=== PATIENT | male | born 1970 | race Caucasian/White ===

== ENCOUNTER 2017-03-05 04:44 | Emergency (ER) | payer OTHER ==
[~2017-03-05 04:44] MED LIST: BIAXIN FILMTAB250 MG PO; CYCLOBENZAPRINE10 MG PO; FLEXERIL10 MG PO; PERCOCET 325 MG1 TA2 PO; VICODIN 300 MG-1 TAB PO
--- NOTE | 2017-03-05 05:03 | ED INFLUENZA/URI COMPLAINT ---
History of Present Illness General Chief Complaint: General Adult Stated Complaint: "RT SIDE JAW PAIN RADIATES TO RT EYE,SINUS" Source: patient Exam Limitations: no limitations Vital Signs & Intake/Output Vital Signs & Intake/Output Vital Signs Date Time Temp Pulse Resp B/P B/P Pulse O2 O2 Flow FiO2 Mean Ox Delivery Rate 03/05 0537 61 20 172/98 97 Room Air 03/05 0457 97.4 68 20 148/89 97 Room Air Allergies Coded Allergies: MDX - Morphine (MORPHINE) (Intermediate, RASH, HIVES, PAIN 08/26/14) MDX - Penicillin (UNKNOWN RX 04/18/14) Reconcile Medications Clarithromycin (Biaxin Filmtab) 250 MG TAB 1 TAB PO BID PNA CYCLOBENZAPRINE HCL (Cyclobenzaprine HCl) 10 MG TABLET 1 TAB PO QPM PRN PAIN (Reported) OXYCODONE HCL/ACETAMINOPHEN (Percocet 5-325 MG Tablet) 325 MG/5 MG TAB 1-2 TAB PO Q4-6 PRN PRN PAIN Triage Note: PT TO ED C/O PAIN IN RT LOWER JAW THAT GOES UP TO SINUSES UNDER EYE AND BEHIND EYE, ALSO GOES DOWN TO UNDER THE JAW IN LYMPH NODE AREA. PAIN COMES AND GOES. DENIES AT THIS TIME. TOOK 3 ALEVE APPROX 90 MINS AGO. STATES DOES HAVE A TEMPERATURE SENSATIVE TOOTH UPPER JAW RT SIDE. PMH OF CA AND CSARDIAC STENT. DENIES CHEST PAIN, DENIES ANY SOB Triage Nurses Notes Reviewed? yes Onset: Abrupt Duration: hour(s): Timing: single episode today Severity: moderate Prior Episodes/Possible Cause: "I had jaw pain when I had my heart attack." Modifying Factors: Improves With: rest. Associated Symptoms: "Pain in my jaw that goes up behind my eye." HPI: 46 yo gentleman h/o CA, s/p cardiac stent 4 years ago, presents with 4 episodes of right neck and jaw pain, intermittent, beginning at 1:30am. He notes that each episode lasts 10-15 minutes, and is not associated with chest pain, shortness of breath, diaphoresis. He notes that, "It doesn't seem to be painful when I press my jaw.... it's really weird." He notes that when he does get the pain, "it's really bad, 05/05." (REBECCA TAFOYA,JAQUELIN Tejeda) Past History Travel History Traveled to [place] past 21 day No Medical History Any Pertinent Medical History? 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 No (JAQUELIN FERNANDEZ MD) Review of Systems Review of Systems Constitutional: Reports: no symptoms. EENTM: Reports: no symptoms. Respiratory: Reports: no symptoms. Cardiovascular: Reports: no symptoms. GI: Reports: no symptoms. Genitourinary: Reports: no symptoms. Musculoskeletal: Reports: no symptoms. Skin: Reports: no symptoms. Neurological/Psychological: Reports: no symptoms. Hematologic/Endocrine: Reports: no symptoms. Immunologic/Allergic: Reports: no symptoms. All Other Systems: Reviewed and Negative (JAQUELIN FERNANDEZ MD) Physical Exam Physical Exam General Appearance: well developed/nourished, no apparent distress Head: atraumatic, normal appearance Eyes: Bilateral: normal appearance, PERRL, EOMI. Ears, Nose, Throat: normal ENT inspection, moist mucous membrane, hearing grossly normal, no pain to palpation in jaw/sinuses Neck: normal inspection, supple, full range of motion Respiratory: normal breath sounds, chest non-tender, no respiratory distress, quiet respiration Cardiovascular: regular rate/rhythm, normal peripheral pulses Gastrointestinal: normal bowel sounds, soft, non-tender, no organomegaly Back: normal inspection, normal range of motion Extremities: normal inspection, normal capillary refill, normal range of motion Neurologic/Psych: no motor/sensory deficits, awake, alert, oriented x 3 Skin: intact, normal color, warm/dry Core Measures Severe Sepsis Present: No Septic Shock Present: No (JAQUELIN FERNANDEZ MD) Progress Differential Diagnosis: sinusitis, chest wall pain, unstable angina Plan of Care: Orders Procedure Date/time Status TROPONIN LEVEL 03/05 0830 Active EKG 03/05 0830 Active CTA CHEST-PULMONARY EMBOLISM 03/05 0647 Active EKG 03/05 0556 Active Add-on Test (ER Only) 03/05 544 Active EKG 03/05 531 Active XRY-PORTABLE CHEST XRAY 03/05 518 Active TROPONIN LEVEL 03/05 518 Complete PARTIAL THROMBOPLASTIN TIME 03/05 518 Complete PROTHROMBIN TIME 03/05 518 Complete D-DIMER 03/05 518 Complete COMPREHENSIVE METABOLIC PANEL 03/05 518 Complete CBC WITHOUT DIFFERENTIAL 03/05 518 Complete EKG 03/05 518 Active Laboratory Tests 03/05/17 0523: Anion Gap 10, Estimated GFR > 60, BUN/Creatinine Ratio 23.0, Glucose 121 H, Calcium 9.9, Total Bilirubin 0.4, AST 70 H, ALT 62, Alkaline Phosphatase 69, Troponin I < 0.01, Total Protein 6.7, Albumin 4.1, Globulin 2.6, Albumin/ Globulin Ratio 1.6, PT 9.9, INR 0.94, APTT 30, D-Dimer High Sensitivty 418 H, CBC w Diff NO MAN DIFF REQ, RBC 4.45 L, MCV 90.2, MCH 29.8, RDW 13.3, MPV 8.6, Gran % 78.4 H, Lymphocytes % 15.0 L, Monocytes % 4.6, Eosinophils % 1.6, Basophils % 0.4, Absolute Granulocytes 11.6 H, Absolute Lymphocytes 2.2, Absolute Monocytes 0.7 H, Absolute Eosinophils 0.2, Absolute Basophils 0.1, PUBS MCHC 33.0 Diagnostic Imaging: Viewed by Me: Radiology Read, CT Scan. Discussed w/RAD: Radiology Read, CT Scan. Initial ED EKG: left ant mumtaz block... unchanged x 2 Repeat EKG: unchanged Hand-Off Endorsed To: LUIS TAFOYA,ELYSIA Cardoso Endorsed Time: 0700 Pending: CT, other (blood work) Comments: 3 ekg's are all benign. (REBECCA TAFOYA,JAQUELIN Tejeda) Comments: 03/05/17, 0720: Patient is insistent upon leaving. Patient states that he knows that we did not draw a second set of enzymes here and they're not due until 3: 30. Patient states he has not had the pain and a little while and has too many things to do. Patient verbally understands the risks of leaving AGAINST MEDICAL ADVICE. Patient advised that with just one set of enzymes are cannot tell that he did not have any type of heart related issue. Patient advised that he has a history of heart attacks and has a stent in already. Patient advised that if this is his heart that is causing this pain then he can have a major heart attack and even from it. Patient verbally understands these risks. Patient is alert and oriented 3. Patient is competent to make this decision. (LUIS TAFOYA,ELYSIA Cardoso) Departure Departure Condition: Stable Clinical Impression Primary Impression: Jaw pain Referrals: PATIENT HAS NO PRIMARY CARE DR (PCP/Family) Departure Forms: Customer Survey General Discharge Information (REBECCA TAFOYA,JAQUELIN Tejeda) Departure Disposition: LEFT AGAINST MEDICAL ADVICE Additional Instructions: PLEASE RETURN SO WE CAN FINISH THE EVALUATION (LUIS TAFOYA,ELYSIA Cardoso)
[2017-03-05 05:59] LABS: ABSOLUTE BASOPHIL COUNT 0.1 /CUMM (0.0-0.2); ABSOLUTE EOSINOPHIL COUNT 0.2 /CUMM (0.0-0.7); ABSOLUTE GRANULOCYTE CT 11.6 /CUMM (1.4-6.5); ABSOLUTE LYMPH COUNT 2.2 /CUMM (1.2-3.4); ABSOLUTE MONOCYTE COUNT 0.7 /CUMM (0.10-0.60); BASOPHIL % 0.4 % (0.0-2.0); EOSINOPHIL % 1.6 % (0-5); GRANULOCYTE % 78.4 % (42.2-75.2); HEMATOCRIT 40.1 % (42-52); MEAN CORPUSCULAR HGB 29.8 PG (27.0-31.0); MEAN CORPUSCULAR VOLUME 90.2 FL (80.0-94.0); MEAN PLATELET VOLUME 8.6 FL (7.4-10.4); PLATELET COUNT 300 /CUMM (130-400); RBC DISTRIBUTION WIDTH 13.3 % (11.5-14.5); RED BLOOD CELL CT 4.45 /CUMM (4.70-6.10); WHITE BLOOD CELL COUNT 14.8 /CUMM (4.8-10.8)
[2017-03-05 06:07] LABS: PT 9.9 SEC (9.4-12.5); PTT 30 SEC (25-37)
[2017-03-05 07:31] VITALS: BP 142/74
== END 2017-03-05 07:32 | disposition left against medical advice (07) ==
LOC: ERH 04:44
PROVIDERS: Pediatrics
DX: R68.84 Jaw pain (principal); M54.2 Cervicalgia
CPT/HCPCS: 93005; 93010; 96374; 96375; J0131; J1885; J3490

== ENCOUNTER 2018-01-01 15:17 | Emergency (ER) | payer OTHER ==
[~2018-01-01] VITALS: Ht 172.7 cm; Wt 79.4 kg
[~2018-01-01 15:17] MED LIST changes: +AZITHROMYCIN250 M1 PO; +NASONEX17 GM NASB
[2018-01-01 15:27] VITALS: BP 147/76
--- NOTE | 2018-01-01 15:50 | ED EAR COMPLAINT ---
History of Present Illness General Chief Complaint: Ear Complaints Stated Complaint: L EAR PAIN Source: patient, old records Exam Limitations: no limitations Vital Signs & Intake/Output Vital Signs & Intake/Output Vital Signs Date Time Temp Pulse Resp B/P B/P Pulse O2 O2 Flow FiO2 Mean Ox Delivery Rate 01/01 1527 96.8 81 18 147/76 98 Room Air Allergies Coded Allergies: Penicillins (Intermediate, RASH 07/01/17) morphine (Intermediate, ARM FELT HOT 07/01/17) Reconcile Medications Azithromycin 250 MG TABLET 1 DP PO AD sinusitis 2 the first day followed by 1 for days 2-5 Azithromycin 250 MG TABLET 1 DP PO AD sinusitis 2 the first day followed by 1 for days 2-5 Fluticasone Propionate (Flonase Allergy Relief) 50 MCG/ACTUATION SPRAY.SUSP 2 SPRAY NINA DAILY RHINITIS Mometasone Furoate (Nasonex) 50 MCG SPRAY.PUMP 2 SPRAY NASB DAILY sinusitis Triage Note: 47M LEFT EAR ACHE, LEFT SIDED MAXILLARY SINUS PRESSURE AND TRIGEMINAL NERVE AREA. NO PARALYSIS OR DROOP NOTED. DENIES NOTICING CHANGE IN HEARING. ALSO REPORTS LEFT SIDED LYMPHNODE TENDERNESS. AFEBRILE. DENIES FEVERS/CHILLS. REPORTS SYMPTOMS X1 WEEK AND WORSENING Triage Nurses Notes Reviewed? yes Onset: Abrupt Duration: week(s): (1), constant Timing: recent history Injury Environment: home Severity: moderate Severity Numbers: 5 No Modifying Factors: none Associated Symptoms: denies HPI: 47-year-old male with history of coronary artery disease presents the ER for evaluation complaining of a one-week history of left facial pain and pressure radiating to his ear and into his left upper gum. He reports his roommate has been sick with similar symptoms. He has not taken anything for his symptoms. No cough fever chills sore throat abdominal pain nausea vomiting diarrhea. No chest pain. He denies any decreased hearing out of the ear no right ear symptoms. (Alfonso GARCIA,Apolinar) Past History Travel History Traveled to [place] past 21 day No Medical History Any Pertinent Medical History? 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 No (Apolinar Ramírez) Review of Systems Review of Systems Constitutional: Reports: see HPI. Comments Review of systems: See HPI, All other systems negative. Constitutional, no chills no fever, HEENT: no sore throat congestion, ear pain Cardiovascular: No chest pain , no palpitation Skin: no rashes, no change in skin Respiratory: No dyspnea no cough GI: No nausea no vomiting, no diarrhea Muscle skeletal: No joint pain, no back pain Neurologic: , no headache Heme/endocrine: No bruising Immunology: No lymphadenopathy (Apolinar Ramírez) Physical Exam Physical Exam General Appearance: well developed/nourished, no apparent distress, alert Ears: Bilateral: canal normal. Comments: Well-developed well-nourished patient in no apparent distress. Head/Face: Atraumatic, LEFT maxillary sinus tenderness, no facial swelling Eyes: PERRL, EOMI, no conjunctival injection.No nystagmus Ear:External auditory canal and Tympanic membranes clear, no erythema, no FB. Nose: atraumatic.Normal inspection: Throat: Moist mucous membranes.Pharynx normal. No pharyngeal erythema/exudate seen. No stridor/drooling or assymetry. No swelling or edema. No gingival swelling Neck: Supple, no lymphadenopathy, FROM Back: FROM Cardiovascular: Regular rate and rhythms no murmur Respiratory: No respiratory distress. Patient speaking in full complete sentences. Breath sounds clear to auscultation bilaterally: NO W/R/R Extremities: full range of motion Neuro: awake, alert, and oriented to person, place and time. There were no obvious focal neurologic abnormalities. Skin: Warm & dry;No appreciable rash on exposed skin Psych: Mood affect normal, normal memory normal judgment. (Apolinar Ramírez) Progress Differential Diagnoses I considered the following diagnoses in my evaluation of the patient: Otitis media or otitis externa sinusitis, viral syndrome upper respiratory infection Plan of Care: I discussed with the patient at length all of their results. I had an extensive conversation regarding need for close follow up with their primary care physician this week as well as return precautions. I answered all of their questions, they feel comfortable with the plan and follow-up care. I discussed with the patient/family the medications that they will receive. I gave them signs and symptoms that could indicate an adverse reaction. I have advised them to limit their activities until they can see how they respond to the medication. Initial ED EKG: none (Apolinar Ramírez) Departure Departure Time of Disposition: 1556 Disposition: HOME OR SELF CARE Condition: Stable Clinical Impression Primary Impression: Sinusitis Referrals: Patient Has No Primary Care Dr (PCP/Family) Additional Instructions: zpak and flonase as directed. tylenol or motrin for pain. follow up with your pmd, return with any concerns Departure Forms: Customer Survey General Discharge Information Prescriptions: Current Visit Scripts Azithromycin 1 DP PO AD #6 TAB 2 the first day followed by 1 for days 2-5 Fluticasone Propionate (Flonase Allergy Relief) 2 SPRAY NINA DAILY #1 UNIT (Apolinar Ramírez) PA/ON CAR SUPERVISOR Co-Sign Statement Statement: ED Attending supervision documentation- [] I saw and evaluated the patient. I have also reviewed all the pertinent lab results and diagnostic results. I agree with the findings and the plan of care as documented in the PA's/ON CAR SUPERVISOR's documentation. [X] I have reviewed the ED Record and agree with the PA's/ON CAR SUPERVISOR's documentation. [] Additions or exceptions (if any) to the PAs/ON CAR SUPERVISOR's note and plan are summarized below: [] (Nehemias TAFOYA,Fabrizio Cardoso)
[2018-01-01] MEDS ORDERED: FLONASE ALLERG9.9 ML NAS (15:58)
[2018-01-01] MEDS ORDERED: AZITHROMYCIN250 M1 PO (15:58)
== END 2018-01-01 16:01 ==
LOC: ERH 15:17
DX: J32.9 Chronic sinusitis, unspecified (principal); F17.210 Nicotine dependence, cigarettes, uncomplicated

== ENCOUNTER 2018-04-23 16:56 | Emergency (ER) | payer OTHER ==
[~2018-04-23] VITALS: Ht 172.7 cm; Wt 79.4 kg
[~2018-04-23 16:56] MED LIST changes: +FLONASE ALLERG9.9 ML NAS; +IBUPROFEN800 M1 PO
[2018-04-23 17:11] VITALS: BP 156/107
[2018-04-23] MEDS ORDERED: CYCLOBENZAPRINE10 M1 PO (19:01)
[2018-04-23] MEDS ORDERED: IBUPROFEN800 M1 PO (19:01)
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
== END 2018-04-23 20:10 ==
LOC: ERH 16:56
DX: M51.36 Other intervertebral disc degeneration, lumbar region (principal); M54.2 Cervicalgia; M25.512 Pain in left shoulder; M54.5 Low back pain; V49.40XA Driver injured in collision with unspecified motor vehicles in traffic accident, initial encounter
CPT/HCPCS: 72050; 72110; 73030-LT

== ENCOUNTER 2018-05-08 21:17 | Emergency (ER) | payer OTHER ==
[~2018-05-08] VITALS: Ht 170.2 cm; Wt 78.9 kg
[~2018-05-08 21:17] MED LIST changes: +CYCLOBENZAPRINE10 M1 PO
[2018-05-08 21:27] VITALS: BP 145/93
--- NOTE | 2018-05-08 23:56 | ED GENERAL ADULT ---
History of Present Illness General Chief Complaint: Laceration Procedure Stated Complaint: USING MANDOLIN, SLICED PART OF PALM OFF X NOON MONALISA Source: patient Exam Limitations: no limitations Vital Signs & Intake/Output Vital Signs & Intake/Output Vital Signs Date Time Temp Pulse Resp B/P B/P Pulse O2 O2 Flow FiO2 Mean Ox Delivery Rate 05/08 2127 96.7 84 18 145/93 96 Room Air Allergies Coded Allergies: Penicillins (Intermediate, RASH 07/01/17) morphine (Intermediate, ARM FELT HOT 07/01/17) Reconcile Medications Cyclobenzaprine HCl 10 MG TABLET 1 TAB PO TID PRN pain Ibuprofen 800 MG TABLET 1 TAB PO TID PRN pain Triage Note: PRESENTS TO ED FOR EVALUATION OF RIGHT HAND LACERATION WITH A MANDOLIN. PRESSURE DRESSING APPLIED. WILL NEED TETANUS SHOT. Triage Nurses Notes Reviewed? 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 Patient states that he cleaned the wound prior to arrival, does not believe he needs stitches, and only presented to the emergency department because he has had difficulty controlling the bleeding. Not on any anticoagulation. Has tried direct pressure and silver nitrate sticks that she has at home without success. Denies numbness or paresthesias. (Megan Castaneda) Past History Travel History Traveled to [place] past 21 day No Medical History Any Pertinent Medical History? 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 No (Megan Castaneda) Review of Systems Review of Systems Constitutional: Reports: no symptoms. EENTM: Reports: no symptoms. Respiratory: Reports: no symptoms. Cardiovascular: Reports: no symptoms. GI: Reports: no symptoms. Genitourinary: Reports: no symptoms. Musculoskeletal: Reports: no symptoms. Skin: Reports: see HPI. Neurological/Psychological: Reports: no symptoms. Hematologic/Endocrine: Reports: no symptoms. Immunologic/Allergic: Reports: no symptoms. All Other Systems: Reviewed and Negative (Megan Castaneda) Physical Exam Physical Exam General Appearance: well developed/nourished, no apparent distress, alert, awake Comments: Gen.: Well-nourished, well-developed, no acute distress. Head: Normocephalic, atraumatic. Eyes: Normal inspection bilaterally Ears: Normal inspection bilaterally Nose: Normal inspection Neck: Normal inspection Lungs: clear to auscultation bilaterally, normnal breath sounds Heart: regular rate and rhythm Abdomen: soft and non-tender Extremities: Right hand Inspection: Skin avulsion to palmar surface over the thenar eminence, active bleeding with a focal area of arterial bleeding Palpation: Tenderness to palpation of the wound edges ROM: Unrestricted range of motion at all MCPs/PIPs/DIPs and IP joint Sensation: intact to median/radial/ulnar nerves Motor strength: 5/5 with digit flexion, extension, interosseous strength, and 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 No CVA/TIA Diagnosis: No Sepsis Present: No Sepsis Focused Exam Completed? No (Megan Castaneda) Progress Differential Diagnoses I considered the following diagnoses in my evaluation of the patient: [Skin avulsion versus laceration versus vascular injury versus tendon injury versus nerve injury versus fracture] Plan of Care: Exam shows a skin avulsion with small punctate area of arterial bleeding. Bleeding was controlled with application of Surgicel. Applied pressure dressing over the Surgicel. Tetanus updated. Counseled on wound care and strict return precautions. Initial ED EKG: none (Megan Castaneda) Departure Departure Disposition: HOME OR SELF CARE Condition: Stable Clinical Impression Primary Impression: Skin avulsion Secondary Impressions: Arterial hemorrhage Referrals: Patient Has No Primary Care Dr (PCP/Family) Additional Instructions: Keep the wound wrapped for the next 24 hours. After this you may undress the wound. Do not pick at the Surgicel that was applied, this will fall off on its own. Follow-up with your primary care provider for reevaluation. Return to the emergency department for any normal worsening symptoms. 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 I have also reviewed all the pertinent lab results and diagnostic results. I agree with the findings and the plan of care as documented in the PA's/SMOKED MEAT PREPARER's documentation. [x] I have reviewed the ED Record and agree with the PA's/SMOKED MEAT PREPARER's documentation. [] Additions or exceptions (if any) to the PAs/SMOKED MEAT PREPARER's note and plan are summarized below: [] (Deborah TAFOYA,Natanael Tejeda) Critical Care Note Critical Care Note Critical Care Time: non-applicable (Megan Castaneda)
== END 2018-05-09 00:05 ==
LOC: ERH 21:17
DX: S61.401A Unspecified open wound of right hand, initial encounter (principal); R58 Hemorrhage, not elsewhere classified; W27.4XXA Contact with kitchen utensil, initial encounter; Y93.G1 Activity, food preparation and clean up
CPT/HCPCS: 90471; 90714